=== PATIENT | male | born 1985 | race Caucasian/White ===

== ENCOUNTER → 2016-03-27 | Outpatient (CLI) | payer BC | LOC: RAD 18:04 | PROVIDERS: ATTEND Specialist | DX: M50.121 Cervical disc disorder at C4-C5 level with radiculopathy (principal); M54.14 Radiculopathy, thoracic region | CPT/HCPCS: 72156; 72157; 72040; A9577 ==

== ENCOUNTER → 2016-03-31 | Outpatient (CLI) | payer BC | LOC: RAD 16:01 | PROVIDERS: ATTEND Specialist | DX: R51 Headache (principal) | CPT/HCPCS: 70553; A9577 ==